=== PATIENT | female | born 2000 ===

== ENCOUNTER 2023-10-08 07:45 | Outpatient (CLI) | payer BC, SELFPAY ==
--- NOTE | 2023-10-08 07:54 | NM_ITS ---
WS: [id number] NUCLEAR MEDICINE HIDA SCAN CLINICAL INFORMATION: GENERALIZED POSTPRANDIAL ABDOMINAL PAIN TECHNIQUE: Following intravenous administration of 7.9 mCi of technetium 99m mebrofenin, images of th e abdomen were obtained over the course of 60 minutes. Next, gallbladder ejection fraction was determ ined by obtaining preprandial and one-hour postprandial images of the gallbladder following oral kelly stion of Ensure. COMPARISON: None. FINDINGS: Normal hepatic uptake at 5 minutes. Normal hepatic excretion. Gallbladder is visualized by 20 minutes . No evidence of acute cholecystitis. Normal common bile duct and small bowel activity. LEFT Gallbladder ejection fraction 94% within normal limits. No evidence of chronic cholecystitis. IMPRESSION: 1. No evidence of acute or chronic cholecystitis. 2. Gallbladder ejection fraction 94% within normal limits.
== END 2023-10-08 07:46 | disposition home or self-care (01) ==
PROVIDERS: PCP Nurse Practitioner Family; Visit Provider Internal Medicine
DX: R10.84 Generalized abdominal pain (principal)
CPT/HCPCS: 78227; A9537

== ENCOUNTER 2023-10-30 07:44 | Outpatient (CLI) | payer BC, SELFPAY ==
--- NOTE | 2023-10-30 07:50 | NM_ITS ---
WS: [id number] NUCLEAR MEDICINE GASTRIC STUDY CLINICAL INFORMATION: GENERALIZED POSTPRANDIAL ABDOMINAL PAIN TECHNIQUE: Following oral ingestion of cooked egg mixed with 0.98 mCi technetium 99m sulfur colloid, anterior images of the stomach were obtained over the course of 90 minutes. Activity curve was perfor med over the course of 90 minutes with linear regression analysis. COMPARISON: None. FINDINGS: Ingestion of cooked egg mixture. Delayed T1 half emptying 169.99 minutes Only 7% emptying at 59 minutes. Only 34% emptying at 121 minutes IMPRESSION: Delayed gastric emptying. Recommend correlation for gastroparesis. *Normal median T1 half 90 minutes for solid egg meal (45-110 minutes). Delayed gastric retention is defined as 90% retained at 1 hour, 60% at 2 hours, 30% at 3 hours, and 10% at 4 hours (normal percent gastric retention is 37-90% at 1 hour, 30-60% at 2 hours, and 0-10% a t 4 hours).
== END 2023-10-30 07:45 | disposition home or self-care (01) ==
LOC: RAD 07:44
PROVIDERS: PCP Nurse Practitioner Family; Visit Provider Internal Medicine
DX: R10.84 Generalized abdominal pain (principal); K30 Functional dyspepsia
CPT/HCPCS: 78264; A9541